=== PATIENT | female | born 1965 | race Caucasian/White ===

== ENCOUNTER → 2017-02-15 | Outpatient (CLI) | payer BC ==
[2014-09-03 15:45] VITALS: BP 117/60
[~2017-02-15] MED LIST: BUPR300T4 PO; CITA20TA5 PO; HYDR12.58 PO; KETO10TA PO; ONDA4TAB7 PO; OXYC-323 PO; PANT40GR PO; POLY17PO5 PO; SENN-6 PO; TEMA30CA PO
--- NOTE | 2017-02-15 12:08 | KCIC ---
MR LUMBAR SPINE HISTORY:Reason For StudyReason: SCIATICA OF LEFT SIDE / Spl. Instructions: / History: Progressing LBP into left hip for 2 yrs. Repetative lifting for many yrs. Technique: Sagittal T2, sagittal STIR, and sagittal T1-weighted images were obtained. Additional axial T1 and T2 weighted imaging was also performed. FINDINGS: Vertebral body height and alignment is maintained throughout the lumbar spine. There is a normal lumbar lordosis. No abnormal bone marrow signal is seen. The conus is in normal position without abnormal signal. Level by level analysis demonstrates no central spinal, or neural foraminal stenosis. Paravertebral soft tissues are unremarkable. Visualized intra-abdominal contents are within normal limits. IMPRESSION: - Negative for compression fracture or significant stenosis. Electronically signed by: James Pitts (Feb 15, 2017 12:07:14)
== END | disposition home or self-care (01) ==
LOC: KCIC MRI 10:46
PROVIDERS: ATTEND Family Medicine
DX: M54.32 Sciatica, left side (principal)
CPT/HCPCS: 72148